=== PATIENT | male | born 1980 | race Caucasian/White ===

== ENCOUNTER 2018-10-21 00:58 | Emergency (ER) | payer MEDICARE, OTHER ==
[~2018-10-21] VITALS: Ht 172.7 cm; Wt 115.9 kg
[2018-10-21] MEDS ORDERED: DOXYCYCLINE HYCLATE 100 MG CAPSULE PO ONE (02:45)
[2018-10-21] MEDS ORDERED: CefTRIAXone SODIUM 1 GM/VIAL IM ONE (02:45)
[2018-10-21] MEDS ORDERED: GENTAMICIN SULFATE 0.3% OPHTHALMIC SOLUTION 5 ML OU ONE (02:45)
[2018-10-21] MEDS ORDERED: LIDOCAINE/PF 1% 2 ML VIAL IM ONE (02:45)
[2018-10-21 04:05] VITALS: BP 141/88
== END 2018-10-21 04:06 | disposition home or self-care (01) ==
LOC: EMS 01:04
DX: H10.9 Unspecified conjunctivitis (principal); F20.9 Schizophrenia, unspecified; E78.00 Pure hypercholesterolemia, unspecified
CPT/HCPCS: 96372; 99283; J0696; J3490